=== PATIENT | female | born 1985 | race Caucasian/White ===

== ENCOUNTER 2020-06-17 00:12 | Emergency (ER) | payer OTHER, SELFPAY ==
[2020-06-17 00:32] VITALS: BP 114/70; PULSE 86; RESP 16; TEMP 36.9; O2SAT 98; BMI 27.3
--- NOTE | 2020-06-17 00:46 | XR_ITS ---
EXAMINATION: XR THORACIC SPINE XR LUMBAR SPINE CLINICAL INFORMATION: Back pain. Low back pain. COMPARISON: None. TECHNIQUE: AP and lateral views of the thoracic spine and AP and lateral views of the lumbar spine and lateral view of the lumbosacral junction. FINDINGS: Thoracic: Vertebral body heights are normal. Alignment is anatomic without spondylolisthesis. Intervertebral disc heights are well-maintained. No degenerative disc disease. Paraspinal soft tissues are unremarkable. No osseous lesions are identified. Lumbar: Vertebral body heights are normal. No fracture or spondylolisthesis. Intervertebral disc heights are maintained without significant degenerative disc disease. Bone mineralization is normal. Soft tissues are unremarkable. Imaged portions of the sacroiliac joints are normal. XR/XR lumbar spine 2-3V IMPRESSION: Normal radiographs of the thoracic and lumbar spine.
--- NOTE | 2020-06-17 00:46 | XR_ITS ---
EXAMINATION: XR THORACIC SPINE XR LUMBAR SPINE CLINICAL INFORMATION: Back pain. Low back pain. COMPARISON: None. TECHNIQUE: AP and lateral views of the thoracic spine and AP and lateral views of the lumbar spine and lateral view of the lumbosacral junction. FINDINGS: Thoracic: Vertebral body heights are normal. Alignment is anatomic without spondylolisthesis. Intervertebral disc heights are well-maintained. No degenerative disc disease. Paraspinal soft tissues are unremarkable. No osseous lesions are identified. Lumbar: Vertebral body heights are normal. No fracture or spondylolisthesis. Intervertebral disc heights are maintained without significant degenerative disc disease. Bone mineralization is normal. Soft tissues are unremarkable. Imaged portions of the sacroiliac joints are normal. XR/XR thoracic spine 3V IMPRESSION: Normal radiographs of the thoracic and lumbar spine.
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
[2020-06-17] MEDS: Ibuprofen 800 MG TABLET PO (01:40)
== END 2020-06-17 03:39 | disposition home or self-care (01) ==
PROVIDERS: Emergency Provider Student in an Organized Health Care Education/Training Program; PCP Family Medicine
DX: S39.012A Strain of muscle, fascia and tendon of lower back, initial encounter (principal); S29.012A Strain of muscle and tendon of back wall of thorax, initial encounter; X50.1XXA Overexertion from prolonged static or awkward postures, initial encounter; Y93.89 Activity, other specified; Y92.414 Local residential or business street as the place of occurrence of the external cause; Y99.0 Civilian activity done for income or pay
CPT/HCPCS: 72072; 72100; 99283; 99284

== ENCOUNTER → 2020-06-19 11:00 | Outpatient (BNVA) | payer OTHER, SELFPAY | PROVIDERS: PCP Family Medicine; Visit Provider Physician Assistant Medical | DX: S29.012A Strain of muscle and tendon of back wall of thorax, initial encounter (principal); S39.012A Strain of muscle, fascia and tendon of lower back, initial encounter; V09.00XA Pedestrian injured in nontraffic accident involving unspecified motor vehicles, initial encounter | CPT/HCPCS: 99203 ==

== ENCOUNTER → 2020-06-27 11:31 | Outpatient (BNVA) | payer OTHER, SELFPAY | PROVIDERS: PCP Family Medicine; Visit Provider Physician Assistant Medical | DX: S29.012A Strain of muscle and tendon of back wall of thorax, initial encounter (principal); X58.XXXA Exposure to other specified factors, initial encounter; F43.0 Acute stress reaction | CPT/HCPCS: 99213 ==

== ENCOUNTER → 2020-07-04 10:24 | Outpatient (BNVA) | payer OTHER, SELFPAY | PROVIDERS: PCP Family Medicine; Visit Provider Physician Assistant Medical | DX: S29.012D Strain of muscle and tendon of back wall of thorax, subsequent encounter (principal); S39.012D Strain of muscle, fascia and tendon of lower back, subsequent encounter; X58.XXXD Exposure to other specified factors, subsequent encounter; F43.9 Reaction to severe stress, unspecified | CPT/HCPCS: 99213 ==

== ENCOUNTER → 2020-07-19 13:11 | Outpatient (BNVA) | payer OTHER, SELFPAY | PROVIDERS: PCP Family Medicine; Visit Provider Physician Assistant Medical | DX: S29.012D Strain of muscle and tendon of back wall of thorax, subsequent encounter (principal); S39.012D Strain of muscle, fascia and tendon of lower back, subsequent encounter; X58.XXXD Exposure to other specified factors, subsequent encounter; F43.9 Reaction to severe stress, unspecified | CPT/HCPCS: 99213 ==

== ENCOUNTER → 2022-05-08 12:35 | Outpatient (BNVA) | payer OTHER, SELFPAY | PROVIDERS: PCP Family Medicine; Visit Provider Internal Medicine | DX: S60.012A Contusion of left thumb without damage to nail, initial encounter (principal); W23.0XXA Caught, crushed, jammed, or pinched between moving objects, initial encounter | CPT/HCPCS: 73140; 99204 ==

== ENCOUNTER → 2022-05-13 09:34 | Outpatient (BNVA) | payer OTHER, SELFPAY | PROVIDERS: PCP Family Medicine; Visit Provider Physician Assistant | DX: S60.012A Contusion of left thumb without damage to nail, initial encounter (principal); W23.0XXA Caught, crushed, jammed, or pinched between moving objects, initial encounter | CPT/HCPCS: 99213 ==

== ENCOUNTER → 2022-06-02 09:52 | Outpatient (BNVA) | payer OTHER, SELFPAY | PROVIDERS: PCP Family Medicine; Visit Provider Physician Assistant Medical | DX: S60.012D Contusion of left thumb without damage to nail, subsequent encounter (principal); W23.0XXD Caught, crushed, jammed, or pinched between moving objects, subsequent encounter | CPT/HCPCS: 99213 ==

== ENCOUNTER 2022-06-10 07:24 | Outpatient (REF) | payer OTHER, SELFPAY ==
--- NOTE | ~2022-06-10 | MR_ITS ---
EXAMINATION: MR WRIST WITHOUT CONTRAST, LEFT CLINICAL INFORMATION: Left wrist sprain. Shooting pain with lifting. Question navicular fracture. COMPARISON: None TECHNIQUE: Multisequence MR imaging of the left wrist was obtained without contrast on a high-field strength scanner. FINDINGS: TRIANGULAR FIBROCARTILAGE: Intact INTRINSIC LIGAMENTS: Intact TENDONS/MEDIAN NERVE: Minimally increased T2 signal adjacent to the abductor pollicis longus and extensor pollicis brevis tendon sheaths just proximal to the overlying skin marker which could represent minimal tendinosis. No measurable tear. ARTICULAR CARTILAGE/BONE: Mild articular cartilage thinning with minimal subchondral cystic change at the 2nd carpometacarpal joint. No acute fracture or dislocation. No concerning lytic or blastic osseous lesion. JOINT FLUID/SOFT TISSUES: Within normal limits. MR/MR wrist LT wo con IMPRESSION: 1. Minimally increased T2 signal adjacent to the abductor pollicis longus and extensor pollicis brevis tendon sheaths just proximal to the overlying skin marker which could represent minimal tendinosis. No measurable tear. 2. Mild arthrosis at the 2nd carpometacarpal joint. 3. No acute fracture or dislocation.
== END 2022-06-10 07:25 | disposition home or self-care (01) ==
LOC: HO.MRI 07:24
PROVIDERS: Visit Provider Internal Medicine
DX: S69.92XD Unspecified injury of left wrist, hand and finger(s), subsequent encounter (principal)
CPT/HCPCS: 73221

== ENCOUNTER → 2022-06-17 09:17 | Outpatient (BNVA) | payer OTHER, SELFPAY | PROVIDERS: PCP Family Medicine; Visit Provider Physician Assistant Medical | DX: M77.8 Other enthesopathies, not elsewhere classified (principal) | CPT/HCPCS: 99213 ==

== ENCOUNTER → 2022-11-23 07:48 | Outpatient (BNVA) | payer OTHER, SELFPAY | PROVIDERS: PCP Family Medicine; Visit Provider Internal Medicine | DX: S60.212D Contusion of left wrist, subsequent encounter (principal); W23.0XXD Caught, crushed, jammed, or pinched between moving objects, subsequent encounter | CPT/HCPCS: 99213 ==

== ENCOUNTER 2024-12-22 17:48 | Emergency (ER) | payer OTHER, SELFPAY ==
[2024-12-22 17:52] VITALS: BP 110/0; PULSE 77; O2SAT 98
[2024-12-22 18:09] VITALS: BP 122/84; PULSE 74; RESP 16; TEMP 36.1; O2SAT 99; BMI 27.4
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
--- NOTE | 2024-12-22 19:12 | PC.NURSE ---
This nurse is Not primary nurse, reviewed discharge instructions with pt. pt verbalized understanding no sign of distress upon discharge.
[2024-12-22 19:13] VITALS: BP 122/84; PULSE 74; RESP 16; TEMP 36.1; O2SAT 99
== END 2024-12-22 19:14 | disposition home or self-care (01) ==
PROVIDERS: Emergency Provider Emergency Medicine; PCP Family Medicine
DX: Z04.2 Encounter for examination and observation following work accident (principal); Z02.79 Encounter for issue of other medical certificate
CPT/HCPCS: 99282; 99283

== ENCOUNTER → 2024-12-28 10:43 | Outpatient (BNVA) | payer OTHER, SELFPAY | PROVIDERS: PCP Family Medicine; Visit Provider Physician Assistant Medical | DX: F43.0 Acute stress reaction (principal); F41.9 Anxiety disorder, unspecified; Z04.2 Encounter for examination and observation following work accident | CPT/HCPCS: 99203 ==

== ENCOUNTER → 2025-01-05 09:28 | Outpatient (BNVA) | payer OTHER, SELFPAY | PROVIDERS: PCP Family Medicine; Visit Provider Internal Medicine | DX: F43.0 Acute stress reaction (principal) | CPT/HCPCS: 99213 ==

== ENCOUNTER → 2025-01-19 09:14 | Outpatient (BNVA) | payer OTHER, SELFPAY | PROVIDERS: PCP Family Medicine; Visit Provider Internal Medicine | DX: F43.0 Acute stress reaction (principal) | CPT/HCPCS: 99213 ==

== ENCOUNTER → 2025-02-02 10:30 | Outpatient (BNVA) | payer OTHER, SELFPAY | PROVIDERS: PCP Family Medicine; Visit Provider Internal Medicine | DX: F43.0 Acute stress reaction (principal); F41.9 Anxiety disorder, unspecified; Z04.2 Encounter for examination and observation following work accident | CPT/HCPCS: 99213 ==

== ENCOUNTER → 2025-02-19 11:18 | Outpatient (BNVA) | payer OTHER, SELFPAY | PROVIDERS: Visit Provider Internal Medicine | DX: F41.9 Anxiety disorder, unspecified (principal); Z04.2 Encounter for examination and observation following work accident | CPT/HCPCS: 99213 ==

== ENCOUNTER → 2025-03-07 09:11 | Outpatient (BNVA) | payer OTHER, SELFPAY | PROVIDERS: Visit Provider Internal Medicine | DX: F43.0 Acute stress reaction (principal); F41.9 Anxiety disorder, unspecified | CPT/HCPCS: 99213 ==

== ENCOUNTER → 2025-04-02 08:58 | Outpatient (BNVA) | payer OTHER, SELFPAY | PROVIDERS: Visit Provider Internal Medicine | DX: F43.0 Acute stress reaction (principal); F41.9 Anxiety disorder, unspecified | CPT/HCPCS: 99213 ==

== ENCOUNTER → 2025-04-13 09:28 | Outpatient (BNVA) | payer OTHER, SELFPAY | PROVIDERS: Visit Provider Internal Medicine | DX: F43.0 Acute stress reaction (principal); F41.9 Anxiety disorder, unspecified; Z02.79 Encounter for issue of other medical certificate | CPT/HCPCS: 99213 ==